=== PATIENT | male | born 1980 | race Hispanic/Latino ===

== ENCOUNTER 2018-08-08 11:08 | Outpatient (CLI) | payer OTHER ==
--- NOTE | 2018-08-08 11:52 | RAD ---
4 views of the left elbow INDICATION: left elbow injury FINDINGS: There is healed fracture deformity involving the distal humerus likely related to prior sup racondylar humerus fracture. There is an acute lateral condylar fracture involving the distal left humerus. This is minimally displaced. The radiocapitellar alignment is normal-appearing. There is mil d degenerative change of the left elbow joint. Overlying fiberglass splint limits image detail. IMPRESSION: Minimally displaced lateral condylar fracture of the distal humerus. Healed fracture defo rmity of the supracondylar humerus. Mild degenerative change of the left elbow joint.
== END 2018-08-08 11:09 | disposition home or self-care (01) ==
LOC: BICRAD 11:08
DX: S59.902A Unspecified injury of left elbow, initial encounter (principal); S42.452A Displaced fracture of lateral condyle of left humerus, initial encounter for closed fracture; M19.022 Primary osteoarthritis, left elbow; M21.822 Other specified acquired deformities of left upper arm

== ENCOUNTER 2021-06-07 13:46 | Outpatient (CLI) | payer OTHER | END 2021-06-07 13:47 | disposition home or self-care (01) | LOC: BICRAD 13:46 | DX: M25.571 Pain in right ankle and joints of right foot (principal); M79.89 Other specified soft tissue disorders; W19.XXXA Unspecified fall, initial encounter ==